=== PATIENT | female | born 1995 | race American Indian/Alaskan Native ===

== ENCOUNTER 2017-12-12 12:56 | Emergency (ER) | payer MEDICAID ==
[2017-12-12 13:03] VITALS: BP 136/67
--- NOTE | 2017-12-12 15:21 | Emergency Department Report ---
Blank Doc - Documentation Documentation: Pt has cc of nausea and some periodic low abd discomfort /cramping Pt states she believes she is 6 weeks pregnat, and pt saw some " minor spotting " this am.Pt denies cp and sob and fever and h/a. pt states " i had a minor cold last week, but its all gone" Pt states she may need Rhogam Pt has non tender, non ridgid abdomen, no cva tenderness, appears comfortable, is not actively vomiting or currently feeling nausea or pain. Pt is alert with normal gait. Pt screened, labs studies ordered, placed in rack for provider to see.
[2017-12-12 16:14] LABS: Hematocrit 37.9 % (30.3-42.9); Hemoglobin 12.6 gm/dl (10.1-14.3); Mean Corpuscular HGB Conc 33 % (30-34); Mean Corpuscular Volume 75 fl (79-97); Platelet Count 200 K/mm3 (140-440); Red Blood Count 5.09 M/mm3 (3.65-5.03)
[2017-12-12 16:21] LABS: Mean Corpuscular Hemoglobin 25 pg (28-32); Red Cell Distribution Width 24.2 % (13.2-15.2)
[2017-12-12 17:15] LABS: Basophils % (Manual) 0 % (0.0-1.8); Total Cells Counted 100
[2017-12-12 17:16] LABS: Anisocytosis 2+; Macrocytosis 1+; Ovalocytes Few; Platelet Estimate Consistent w Auto; Poikilocytosis 1+; Schistocytes Rare; Target Cells Few
[2017-12-12 17:18] LABS: Bacteria,Urine 2+ /HPF (Negative); Bilirubin,Urine NEG (Negative); Blood,Urine SM (Negative); Color,Urine Yellow (Yellow); Mucus,Urine 3+ /HPF; Protein,Urine <15 mg/dL mg/dL (Negative)
--- NOTE | 2017-12-12 18:17 | Ultrasound Report ---
FINAL REPORT EXAM: US OB TRANSVAGINAL HISTORY: bleeding and abdominal pressure. 1 TECHNIQUE: Transabdominal and transvaginal sonography of the pelvis. PRIORS: None. FINDINGS: There is a single, live intrauterine . Ultrasound estimated gestational age is 6 weeks 0 days. Ultrasound estimated date of confinement is 07 August 2018. heart motion is detected. Probable very small subchorionic hemorrhage incidentally noted. The right ovary measures 4.5 x 2.9 x 3.4 cm and contains rounded, heterogeneous hypoechoic focus measuring 2.6 cm may represent involuting follicle or cyst. The left ovary measures 3.0 x 1.9 x 2.2 cm and is grossly unremarkable. Trace free fluid in pelvic cul-de-sac. Remainder of uterus and adnexa grossly unremarkable. IMPRESSION: 1. Single, live intrauterine . 2. Probable functional cystic change in the right ovary.
--- NOTE | 2017-12-12 18:18 | Ultrasound Report ---
FINAL REPORT EXAM: US OB < = 14 WEEKS FETUS HISTORY: Blleding. abd pressure, missed period TECHNIQUE: Transabdominal and transvaginal sonography of the pelvis. PRIORS: None. FINDINGS: There is a single, live intrauterine . Ultrasound estimated gestational age is 6 weeks 0 days. Ultrasound estimated date of confinement is 07 August 2018. heart motion is detected. Probable very small subchorionic hemorrhage incidentally noted. The right ovary measures 4.5 x 2.9 x 3.4 cm and contains rounded, heterogeneous hypoechoic focus measuring 2.6 cm may represent involuting follicle or cyst. The left ovary measures 3.0 x 1.9 x 2.2 cm and is grossly unremarkable. Trace free fluid in pelvic cul-de-sac. Remainder of uterus and adnexa grossly unremarkable. IMPRESSION: 1. Single, live intrauterine . 2. Probable functional cystic change in the right ovary.
[2017-12-12] MEDS ORDERED: NACL 0.9% 1000 ML 1,000 ML IV ONE (18:19)
[2017-12-12] MEDS ORDERED: ROCEPHIN/NS 1 GM/50 ML 1 GM/50 ML BAG IV ONE (18:20)
[2017-12-12] MEDS ORDERED: cefTRIAXone 1 GM in NACL 0.9% 20 ML IV ONE (18:30)
[2017-12-12 18:38] LABS: Alanine Aminotransferase 18 units/L (7-56); Albumin 4.4 g/dL (3.9-5); BUN/Creatinine Ratio 18; Blood Urea Nitrogen 7 mg/dL (7-17); Calcium 9.2 mg/dL (8.4-10.2); Hemolysis Index 7
[2017-12-12] MEDS ORDERED: ROCEPHIN IM ONE ×3 (19:09→20:01)
[2017-12-12] MEDS ORDERED: ANCEF ONE (19:12)
--- NOTE | 2017-12-12 19:43 | Emergency Department Report ---
ED Female HPI - General Chief complaint: Vaginal Bleeding Stated complaint: VAGINAL BLEEDING/6 WEEKS Time Seen by Provider: 12/12/17 15:08 Source: patient Mode of arrival: Ambulatory Limitations: No Limitations - History of Present Illness Initial comments: Pt has cc of nausea and some periodic low abd discomfort /cramping Pt states she believes she is 6 weeks pregnat, and pt saw some " minor spotting " this am.Pt denies cp and sob and fever and h/a. pt states " i had a minor cold last week, but its all gone" Pt states she may need Rhogam Pt has non tender, non ridgid abdomen, no cva tenderness, appears comfortable, is not actively vomiting or currently feeling nausea or pain. Pt is alert with normal gait. Pt screened, labs studies ordered, placed in rack for provider to see. MD Complaint: vaginal bleeding -: This morning Quality: other (abd pressure) Consistency: intermittent Improves with: none Worsens with: none Are you Now?: Yes Last Menstrual Period: 11/01/17 EDC: 08/08/18 Associated Symptoms: nausea/vomiting - Related Data Sexually active: Yes Previous Rx's Medication Instructions Recorded Last Taken Type Lois Root [Lois] 250 mg PO Q8H PRN #30 capsule 12/12/17 Unknown Rx Pnv No.95/Ferrous Fum/Folic AC 1 each PO QDAY #90 tablet 12/12/17 Unknown Rx [ Formula Tablet] metroNIDAZOLE [Flagyl] 2 gram PO NOW #4 tablet 12/12/17 Unknown Rx Allergies Allergy/AdvReac Type Severity Reaction Status Date / Time No Known Allergies Allergy Verified 12/12/17 13:01 ED Review of Systems ROS: Stated complaint: VAGINAL BLEEDING/6 WEEKS Other details as noted in HPI Constitutional: denies: chills, fever Eyes: as per HPI ENT: denies: ear pain, throat pain Respiratory: denies: cough, shortness of breath, wheezing Cardiovascular: denies: chest pain, palpitations Gastrointestinal: abdominal pain, nausea, vomiting Genitourinary: denies: urgency, dysuria, discharge Musculoskeletal: denies: back pain, joint swelling, arthralgia Skin: denies: rash, lesions Neurological: denies: headache, weakness, paresthesias Psychiatric: denies: anxiety, depression Hematological/Lymphatic: denies: easy bleeding, easy bruising ED Past Medical Hx - Past Medical History Previous Medical History?: No - Surgical History Past Surgical History?: No - Social History Smoking Status: Former Smoker Substance Use Type: None - Medications Home Medications: Home Medications Medication Instructions Recorded Confirmed Last Taken Type Lois Root [Lois] 250 mg PO Q8H PRN #30 capsule 12/12/17 Unknown Rx Pnv No.95/Ferrous Fum/Folic AC 1 each PO QDAY #90 tablet 12/12/17 Unknown Rx [ Formula Tablet] metroNIDAZOLE [Flagyl] 2 gram PO NOW #4 tablet 12/12/17 Unknown Rx ED Physical Exam - General Limitations: No Limitations General appearance: alert, in no apparent distress - Head Head exam: Present: atraumatic, normocephalic - Eye Eye exam: Present: normal appearance - ENT ENT exam: Present: mucous membranes moist - Neck Neck exam: Present: normal inspection - Respiratory Respiratory exam: Present: normal lung sounds bilaterally - Cardiovascular Cardiovascular Exam: Present: regular rate - GI/Abdominal GI/Abdominal exam: Present: soft. Absent: distended, tenderness - External exam: Present: normal external exam Speculum exam: Present: erythema, vaginal discharge, cervical discharge, vaginal bleeding Bi-manual exam: Present: normal bi-manual exam - Extremities Exam Extremities exam: Present: normal inspection - Back Exam Back exam: Present: normal inspection - Neurological Exam Neurological exam: Present: alert, oriented X3 - Psychiatric Psychiatric exam: Present: normal affect, normal mood ED Course Vital Signs 12/12/17 13:01 Temperature 98.0 F Pulse Rate 76 Respiratory 18 Rate Blood Pressure 136/67 O2 Sat by Pulse 100 Oximetry ED Medical Decision Making - Lab Data Result diagrams: 12/12/17 15:44 12/12/17 16:59 - Radiology Data Radiology results: report reviewed, image reviewed FINDINGS: There is a single, live intrauterine . Ultrasound estimated gestational age is 6 weeks 0 days. Ultrasound estimated date of confinement is 07 August 2018. heart motion is detected. Probable very small subchorionic hemorrhage incidentally noted. The right ovary measures 4.5 x 2.9 x 3.4 cm and contains rounded, heterogeneous hypoechoic focus measuring 2.6 cm may represent involuting follicle or cyst. The left ovary measures 3.0 x 1.9 x 2.2 cm and is grossly unremarkable. Trace free fluid in pelvic cul-de-sac. Remainder of uterus and adnexa grossly unremarkable. IMPRESSION: 1. Single, live intrauterine . 2. Probable functional cystic change in the right ovary. Transcribed By: [facility] Dictated By: MARTINA ANTHONY MD Electronically Authenticated By: MARTINA ANTHONY MD Signed Date/Time: 12/12/171811 Critical care attestation.: If time is entered above; I have spent that time in minutes in the direct care of this critically ill patient, excluding procedure time. ED Disposition Clinical Impression: Trichomonas vaginitis, Bacterial vaginosis, Nausea/vomiting in , STD ( sexually transmitted disease) Qualifiers: Weeks of gestation: less than 8 weeks Qualified Code(s): Z3A.01 - Less than 8 weeks gestation of Disposition: DC-01 TO HOME OR SELFCARE Is pt being admited?: No Does the pt Need Aspirin: No Condition: Stable Instructions: Bacterial Vaginosis (ED), Morning Sickness (ED), (ED) Additional Instructions: Please take antibiotics as prescribed. Please take lois root as prescribed when necessary for nausea and vomiting. Please take vitamins as prescribed. Please follow up with an OB provider I have listed several below. Prescriptions: Lois Root [Lois] 250 mg PO Q8H PRN #30 capsule PRN Reason: N/V If Npo And No Iv Access metroNIDAZOLE [Flagyl] 2 gram PO NOW #4 tablet Pnv No.95/Ferrous Fum/Folic AC [ Formula Tablet] 1 each PO QDAY #90 tablet Referrals: PRIMARY CARE, [Primary Care Provider] - 3-5 Days [facility] [Provider Group] - 3-5 Days [facility] [Provider Group] - 3-5 Days [facility] [Provider Group] - 3-5 Days [facility] [Provider Group] - 3-5 Days Forms: STI Treatment and Prevention
[2017-12-12] MEDS ORDERED: ZITHROMAX PO ONE (19:59)
[2017-12-12] MEDS ORDERED: XYLOCAINE 1% MPF 5 mL INFILTRATI ONE (20:01)
== END 2017-12-12 21:45 | disposition home or self-care (01) ==
LOC: ED 12:56
DX: O23.591 Infection of other part of genital tract in pregnancy, first trimester (principal); A59.01 Trichomonal vulvovaginitis; A64 Unspecified sexually transmitted disease; R11.2 Nausea with vomiting, unspecified; Z3A.01 Less than 8 weeks gestation of pregnancy; Z87.891 Personal history of nicotine dependence
CPT/HCPCS: 36415; 76801; 76817; 80053; 81001; 84702; 84703; 85007; 85025; 86900; 86901; 87076; 87086; 87186; 87210; 87591; 96361; 96365; 96372; 99284; J0690; J0696; J7030

== ENCOUNTER 2018-03-07 23:31 | Emergency (ER) | payer MEDICAID, OTHER ==
[2018-03-08 01:10] LABS: Bacteria,Urine 2+ /HPF (Negative); Bilirubin,Urine NEG (Negative); Blood,Urine NEG (Negative); Calcium Oxalate Crystals,Urine 3+; Color,Urine Yellow (Yellow); Mucus,Urine 2+ /HPF
[2018-03-08 01:13] LABS: Basophils % (Auto) 0.6 % (0.0-1.8); Eosinophils # (Auto) 0.1 K/mm3 (0.0-0.4); Eosinophils % (Auto) 1.6 % (0.0-4.3); Hemoglobin 13.4 gm/dl (10.1-14.3); Lymphocytes # (Auto) 2.2 K/mm3 (1.2-5.4); Mean Corpuscular HGB Conc 35 % (30-34); Mean Corpuscular Hemoglobin 31 pg (28-32); Mean Corpuscular Volume 88 fl (79-97); Monocytes # (Auto) 0.6 K/mm3 (0.0-0.8); Platelet Count 178 K/mm3 (140-440); Red Blood Count 4.34 M/mm3 (3.65-5.03); Red Cell Distribution Width 15.4 % (13.2-15.2)
--- NOTE | 2018-03-08 01:34 | Emergency Department Report ---
ED HPI - General Chief complaint: Vaginal Bleeding Stated complaint: 18WKS PREG/BLEEDING Time Seen by Provider: 03/08/18 00:35 Source: patient Mode of arrival: Ambulatory Limitations: No Limitations - History of Present Illness Initial comments: 22-year-old female currently 18 weeks presents to the hospital complaining of brown vaginal spotting since yesterday. States spotting just minimal but she know she is O- and might need RhoGAM. This is her second she has a history of one miscarriage in the past. She has been receiving care without the [facility]. She has mild suprapubic abdominal cramping and pressure rated 5/10 in intensity. No dysuria, fever, or recent intercourse reported. - Related Data Previous Rx's Medication Instructions Recorded Last Taken Type Lois Root [Lois] 250 mg PO Q8H PRN #30 capsule 12/12/17 Unknown Rx Pnv No.95/Ferrous Fum/Folic AC 1 each PO QDAY #90 tablet 12/12/17 Unknown Rx [ Formula Tablet] metroNIDAZOLE [Flagyl] 2 gram PO NOW #4 tablet 12/12/17 Unknown Rx Nitrofurantoin Monohyd/M-Cryst 100 mg PO BID #13 capsule 03/08/18 Unknown Rx [Macrobid 100 mg Capsule] Allergies Allergy/AdvReac Type Severity Reaction Status Date / Time No Known Allergies Allergy Verified 12/12/17 13:01 ED Review of Systems ROS: Stated complaint: 18WKS PREG/BLEEDING Other details as noted in HPI Comment: All other systems reviewed and negative ED Past Medical Hx - Past Medical History Previous Medical History?: No - Surgical History Past Surgical History?: No - Social History Smoking Status: Never Smoker Substance Use Type: None - Medications Home Medications: Home Medications Medication Instructions Recorded Confirmed Last Taken Type Lois Root [Lois] 250 mg PO Q8H PRN #30 capsule 12/12/17 Unknown Rx Pnv No.95/Ferrous Fum/Folic AC 1 each PO QDAY #90 tablet 12/12/17 Unknown Rx [ Formula Tablet] metroNIDAZOLE [Flagyl] 2 gram PO NOW #4 tablet 12/12/17 Unknown Rx Nitrofurantoin Monohyd/M-Cryst 100 mg PO BID #13 capsule 03/08/18 Unknown Rx [Macrobid 100 mg Capsule] ED Physical Exam - General Limitations: No Limitations - Other Other exam information: General: No limitations, patient is alert in no acute distress Head exam: Atraumatic, normocephalic Eyes exam: Normal appearance ENT: Moist mucous membrane, normal oropharynx Neck exam: Normal inspection, full range of motion Respiratory exam: Clear to auscultation bilateral, no wheezes, rales, crackles Cardiovascular: Normal rate and rhythm, normal heart sounds Abdomen: Soft, nondistended, abdomen with uterus palpated just below umbilicus. Minimum suprapubic tenderness without rebound or guarding. Normal bowel sounds Extremity: Full range of motion normal inspection no deformity Back: Normal Inspection, full range of motion, no tenderness Neurologic: Alert, oriented x3, cranial nerves intact, no motor or sensory deficit Psychiatric: normal affect, normal mood Skin: Warm, dry, intact ED Course Vital Signs 03/07/18 03/08/18 23:29 00:52 Temperature 98.6 F Pulse Rate 73 Respiratory 18 Rate Blood Pressure 135/66 O2 Sat by Pulse 100 100 Oximetry ED Medical Decision Making - Lab Data Result diagrams: 03/08/18 00:49 Lab Results 03/08/18 03/08/18 03/08/18 Range/Units 00:47 00:49 00:49 WBC 7.2 (4.5-11.0) K/mm3 RBC 4.34 (3.65-5.03) M/mm3 Hgb 13.4 (10.1-14.3) gm/dl Hct 38.0 (30.3-42.9) % MCV 88 (79-97) fl MCH 31 (28-32) pg MCHC 35 H (30-34) % RDW 15.4 H (13.2-15.2) % Plt Count 178 (140-440) K/mm3 Lymph % (Auto) 31.0 (13.4-35.0) % [place] % (Auto) 8.0 H (0.0-7.3) % Eos % (Auto) 1.6 (0.0-4.3) % Baso % (Auto) 0.6 (0.0-1.8) % Lymph # 2.2 (1.2-5.4) K/mm3 [place] # 0.6 (0.0-0.8) K/mm3 Eos # 0.1 (0.0-0.4) K/mm3 Baso # 0.0 (0.0-0.1) K/mm3 Seg Neutrophils % 58.8 (40.0-70.0) % Seg Neutrophils # 4.2 (1.8-7.7) K/mm3 HCG, Quant 09090 H (0-4) mIU/mL Urine Color Yellow (Yellow) Urine Turbidity Clear (Clear) Urine pH 6.0 (5.0-7.0) Ur Specific [place] 1.028 (1.003-1.030) Urine Protein 30 mg/dl (Negative) mg/dL Urine Glucose (UA) Neg (Negative) mg/dL Urine Ketones Tr (Negative) mg/dL Urine Blood Neg (Negative) Urine Nitrite Neg (Negative) Urine Bilirubin Neg (Negative) Urine Urobilinogen 2.0 (<2.0) mg/dL Ur Leukocyte Esterase Lg (Negative) Urine WBC (Auto) 19.0 H (0.0-6.0) /HPF Urine RBC (Auto) 9.0 (0.0-6.0) /HPF U Epithel Cells (Auto) 23.0 H (0-13.0) /HPF Urine Bacteria (Auto) 2+ (Negative) /HPF Calcium Oxalate Crystal 3+ Urine Mucus 2+ /HPF Blood Type Antibody Screen Screen Ord Rhogam Gestat Weeks WEEKS 03/08/18 03/08/18 Range/Units 00:49 00:49 WBC (4.5-11.0) K/mm3 RBC (3.65-5.03) M/mm3 Hgb (10.1-14.3) gm/dl Hct (30.3-42.9) % MCV (79-97) fl MCH (28-32) pg MCHC (30-34) % RDW (13.2-15.2) % Plt Count (140-440) K/mm3 Lymph % (Auto) (13.4-35.0) % [place] % (Auto) (0.0-7.3) % Eos % (Auto) (0.0-4.3) % Baso % (Auto) (0.0-1.8) % Lymph # (1.2-5.4) K/mm3 [place] # (0.0-0.8) K/mm3 Eos # (0.0-0.4) K/mm3 Baso # (0.0-0.1) K/mm3 Seg Neutrophils % (40.0-70.0) % Seg Neutrophils # (1.8-7.7) K/mm3 HCG, Quant (0-4) mIU/mL Urine Color (Yellow) Urine Turbidity (Clear) Urine pH (5.0-7.0) Ur Specific [place] (1.003-1.030) Urine Protein (Negative) mg/dL Urine Glucose (UA) (Negative) mg/dL Urine Ketones (Negative) mg/dL Urine Blood (Negative) Urine Nitrite (Negative) Urine Bilirubin (Negative) Urine Urobilinogen (<2.0) mg/dL Ur Leukocyte Esterase (Negative) Urine WBC (Auto) (0.0-6.0) /HPF Urine RBC (Auto) (0.0-6.0) /HPF U Epithel Cells (Auto) (0-13.0) /HPF Urine Bacteria (Auto) (Negative) /HPF Calcium Oxalate Crystal Urine Mucus /HPF Blood Type O NEGATIVE O NEGATIVE Antibody Screen Negative Negative Screen Negative Ord Rhogam Gestat Weeks >=11 WEEKS - Radiology Data Radiology results: report reviewed US IMPRESSION: 1. Single living intrauterine gestation at approximately 18 weeks 6 days. 2. EDC by US 08/03/2028. - Medical Decision Making Ultrasound reveals normal IUP 18 weeks 6 days without any acute abnormality. Patient will receive RhoGAM prior to discharge. Urine shows increased WBC count likely contaminated due to increased Epi cells associated as well. Macrobid will be prescribed (first dose given in ed) and [facility] follow-up encouraged. - Differential Diagnosis threatened miscarriage, miscarriage Critical Care Time: No Critical care attestation.: If time is entered above; I have spent that time in minutes in the direct care of this critically ill patient, excluding procedure time. ED Disposition Clinical Impression: Threatened miscarriage, Type O blood, Rh negative, Urine WBC increased, 18 weeks gestation of Disposition: DC-01 TO HOME OR SELFCARE Is pt being admited?: No Does the pt Need Aspirin: No Condition: Stable Instructions: Rho(D) Immune Globulin (Injection), Threatened Miscarriage (ED), Urinary Tract Infection in Women (ED) Additional Instructions: Take the antibiotic as prescribed. Follow-up with your [facility] doctor. Please return if symptoms worsen as indicated by your discharge instructions. Prescriptions: Nitrofurantoin Monohyd/M-Cryst [Macrobid 100 mg Capsule] 100 mg PO BID #13 capsule Referrals: JOSEPH ESCAMILLA MD [Primary Care Provider] - 3-5 Days DIOR LOYA MD [Staff Physician] - 3-5 Days Time of Disposition: 02:56
--- NOTE | 2018-03-08 01:41 | Ultrasound Report ---
FINAL REPORT PROCEDURE: US OB > = 14 WEEKS FETUS TECHNIQUE: Real-time limited sonographic examination was performed for evaluation of position, placenta position for each fetus with image documentation (1 or more fetuses). CPT 51811 HISTORY: vaginal bleeding COMPARISON: No prior studies are available for comparison. FINDINGS: MATERNAL Uterus: Within normal limits . Cervix length: 3.7 cm. Internal Os: Closed . FETUS IUP: Single living intrauterine . Position: Cephalic. Placental position: Anterior, without previa . Amniotic fluid volume: Normal . Heart rate and rhythm: 148 BPM, Regular . anatomic survey: Not performed on this study. MEASUREMENTS BPD: 4.3 centimeter. HC: 16.3 centimeter. AC: 12.7 centimeter. FL: 3.1 centimeter. Mean Gestational Age (composite criteria): 18 weeks 6 days. Ratio biometry: Normal . Estimated Weight: 261 grams. Interval growth: Appropriate . Estimated Due Date (earliest scan): 08/03/2018. IMPRESSION: 1. Single living intrauterine gestation at approximately 18 weeks 6 days. 2. EDC by US 08/03/2028.
[2018-03-08] MEDS ORDERED: MACROBID PO ONE (01:49)
[2018-03-08 03:36] VITALS: BP 132/62
== END 2018-03-08 03:48 | disposition home or self-care (01) ==
LOC: ED 23:31
DX: O20.0 Threatened abortion (principal); Z3A.18 18 weeks gestation of pregnancy
CPT/HCPCS: 36415; 76805; 81001; 84702; 85025; 85461; 86850; 86900; 86901; 99284; J2790

== ENCOUNTER 2018-04-25 16:06 | Emergency (ER) | payer OTHER ==
[2018-04-25 17:12] VITALS: BP 108/57
--- NOTE | 2018-04-25 21:37 | Emergency Department Report ---
ED ENT HPI - General Chief complaint: Earache Stated complaint: LFT EAR BLEEDING PAIN Time Seen by Provider: 04/25/18 21:11 Source: patient, family Mode of arrival: Ambulatory Limitations: No Limitations - History of Present Illness Initial comments: This is a 22-year-old female that is 25 weeks and he reported that she is having left ear pain with some bleeding but denies any trauma. She says she has been picking in her ears because of irritated and itchy and now over the last 2 days she has been having pain with noted bleeding on Q-tip. She denies any fever or chills. Denies any nasal congestion or runny nose. Denies any neck pain or stiffness. Denies any headache. Pain to left ear is 8/10 achy worse with chewing and talking no alleviating factors. Tylenol taken for pain without any relief. Patient's that her baby's findings she does get care and baby moves all the time. Patient denies any related problems include abdominal back pain, abdominal pain, vaginal bleeding or discharge, urinary burning, frequency or urgency. MD complaint: ear pain (left ear pain with blood noted on cotton tip) Onset/Timin -: days(s) Location: L ear Severity: severe Severity scale (0 -10): 8 Quality: aching Consistency: constant Improves with: none Worsens with: eating, movement, other (Chewing and talking) Context- Ear: other (patient reports that she has been having irritation to her left ear and she has been used in objects to clean her ear out and became painful with some blood noted on cotton tip) Associated Symptoms: denies: fever, cough, gum swelling, toothache, pain with swallowing, sore throat, tinnitus, hearing loss, discharge from ear, rhinorrhea - Related Data Previous Rx's Medication Instructions Recorded Last Taken Type Lois Root [Lois] 250 mg PO Q8H PRN #30 capsule 12/12/17 Unknown Rx Pnv No.95/Ferrous Fum/Folic AC 1 each PO QDAY #90 tablet 12/12/17 Unknown Rx [ Formula Tablet] metroNIDAZOLE [Flagyl] 2 gram PO NOW #4 tablet 12/12/17 Unknown Rx Nitrofurantoin Monohyd/M-Cryst 100 mg PO BID #13 capsule 03/08/18 Unknown Rx [Macrobid 100 mg Capsule] Acetaminophen [Tylenol Extra 500 mg PO Q8H PRN #12 tablet 04/25/18 Unknown Rx Strength] Amoxicillin [Amoxicillin TAB] 875 mg PO BID 10 Days #20 tablet 04/25/18 Unknown Rx Neomy/Polymyx B/Hc (Otic) Soln 4 drops OTIC TID 7 Days #1 bottle 04/25/18 Unknown Rx [Cortisporin (Otic) Soln] Allergies Allergy/AdvReac Type Severity Reaction Status Date / Time No Known Allergies Allergy Verified 12/12/17 13:01 ED Dental HPI - General Chief complaint: Earache Stated complaint: LFT EAR BLEEDING PAIN Time Seen by Provider: 04/25/18 21:11 Source: patient Mode of arrival: Ambulatory Limitations: No Limitations - Related Data Previous Rx's Medication Instructions Recorded Last Taken Type Lois Root [Lois] 250 mg PO Q8H PRN #30 capsule 12/12/17 Unknown Rx Pnv No.95/Ferrous Fum/Folic AC 1 each PO QDAY #90 tablet 12/12/17 Unknown Rx [ Formula Tablet] metroNIDAZOLE [Flagyl] 2 gram PO NOW #4 tablet 12/12/17 Unknown Rx Nitrofurantoin Monohyd/M-Cryst 100 mg PO BID #13 capsule 03/08/18 Unknown Rx [Macrobid 100 mg Capsule] Acetaminophen [Tylenol Extra 500 mg PO Q8H PRN #12 tablet 04/25/18 Unknown Rx Strength] Amoxicillin [Amoxicillin TAB] 875 mg PO BID 10 Days #20 tablet 04/25/18 Unknown Rx Neomy/Polymyx B/Hc (Otic) Soln 4 drops OTIC TID 7 Days #1 bottle 04/25/18 Unknown Rx [Cortisporin (Otic) Soln] Allergies Allergy/AdvReac Type Severity Reaction Status Date / Time No Known Allergies Allergy Verified 12/12/17 13:01 ED Review of Systems ROS: Stated complaint: LFT EAR BLEEDING PAIN Other details as noted in HPI Constitutional: denies: chills, fever Eyes: denies: eye pain, eye discharge, vision change ENT: ear pain. denies: throat pain, hearing loss, epistaxis, congestion Respiratory: denies: cough, shortness of breath, wheezing Cardiovascular: denies: chest pain, palpitations, edema, syncope Gastrointestinal: denies: nausea, vomiting, diarrhea Genitourinary: denies: hematuria, discharge Musculoskeletal: denies: back pain, joint swelling, arthralgia Skin: denies: rash, lesions, other Neurological: denies: headache, weakness ED Past Medical Hx - Past Medical History Previous Medical History?: No - Surgical History Past Surgical History?: No - Family History Family history: hypertension - Social History Smoking Status: Never Smoker Substance Use Type: None - Medications Home Medications: Home Medications Medication Instructions Recorded Confirmed Last Taken Type Lois Root [Lois] 250 mg PO Q8H PRN #30 capsule 12/12/17 Unknown Rx Pnv No.95/Ferrous Fum/Folic AC 1 each PO QDAY #90 tablet 12/12/17 Unknown Rx [ Formula Tablet] metroNIDAZOLE [Flagyl] 2 gram PO NOW #4 tablet 12/12/17 Unknown Rx Nitrofurantoin Monohyd/M-Cryst 100 mg PO BID #13 capsule 03/08/18 Unknown Rx [Macrobid 100 mg Capsule] Acetaminophen [Tylenol Extra 500 mg PO Q8H PRN #12 tablet 04/25/18 Unknown Rx Strength] Amoxicillin [Amoxicillin TAB] 875 mg PO BID 10 Days #20 tablet 04/25/18 Unknown Rx Neomy/Polymyx B/Hc (Otic) Soln 4 drops OTIC TID 7 Days #1 bottle 04/25/18 Unknown Rx [Cortisporin (Otic) Soln] ED Physical Exam - General Limitations: No Limitations General appearance: alert, in no apparent distress - Head Head exam: Present: atraumatic, normocephalic, normal inspection - Eye Eye exam: Present: normal appearance, PERRL, EOMI Pupils: Present: normal accommodation - ENT ENT exam: Present: normal orophraynx, mucous membranes moist, normal external ear exam (left EAC with swelling and redness and tenderness. Left tragus tender to palpate), other (bilateral maxillary and frontal sinus is nontender to palpate. Bilateral nasal mucosa). Absent: normal exam, TM's normal bilaterally (left TM erythema.) - Expanded ENT Exam Expanded TM/Canal exam: Erythema: Left TM, Loss of Landmarks: Left TM, Canal Tenderness: Left TM (with redness and swelling.) Mouth exam: Present: normal external inspection, tongue normal Teeth exam: Present: normal inspection Throat exam: Positive: normal inspection - Neck Neck exam: Present: normal inspection, full ROM. Absent: tenderness, lymphadenopathy - Respiratory Respiratory exam: Present: normal lung sounds bilaterally. Absent: respiratory distress, chest wall tenderness - Cardiovascular Cardiovascular Exam: Present: regular rate, normal rhythm, normal heart sounds. Absent: systolic murmur, diastolic murmur - GI/Abdominal GI/Abdominal exam: Present: soft, normal bowel sounds, other (Que in from 25 weeks ). Absent: tenderness - Extremities Exam Extremities exam: Present: normal inspection, full ROM, normal capillary refill , other (No cce. + 2 pulses in all extremities, no neurovascular compromise). Absent: tenderness, pedal edema, joint swelling, calf tenderness - Neurological Exam Neurological exam: Present: alert, oriented X3, normal gait - Psychiatric Psychiatric exam: Present: normal affect, normal mood - Skin Skin exam: Present: warm, dry, intact, normal color. Absent: rash ED Course Vital Signs 04/25/18 17:09 Temperature 98.5 F Pulse Rate 67 Respiratory 16 Rate Blood Pressure 108/57 O2 Sat by Pulse 98 Oximetry - Reevaluation(s) Reevaluation #1: 04/25/18 21:45 Patient received Tylenol plain and then on Heather 75 mg by mouth in the emergency room for left ear pain and amoxicillin 500 mg by mouth to start treatment for otitis media. ED Medical Decision Making - Medical Decision Making This is a 22-year-old female here for left ear pain with blood noted on cotton tip while she was cleaning her ear. She is 25 weeks and followed by OB /RETAIL CONSULTANT for care with no problems in per patient Assessment/plan Otitis media, left ear-patient started on amoxicillin 500 mg by mouth in the emergency room and will be discharged home on amoxicillin Otitis externa, left ear-she will be given Corticosporin otic solution for a left EAC infection Otalgia left ear-Tylenol 650 mg given for left ear pain and will be discharged home on Tylenol. I discussed with patient my physical findings and diagnosis of her left ear to be infection of her eardrum and an ear canal. I discussed with her treatment plan and that she needs to follow-up with her primary care physician or her OB/ RETAIL CONSULTANT in 3-5 days that she was understanding. Patient is not having any problem with her earring and having no active bleeding from ears. Patient is stable, pain control and she is discharged home with prescription for amoxicillin, Corticosporin on headache and Tylenol plain. Critical care attestation.: If time is entered above; I have spent that time in minutes in the direct care of this critically ill patient, excluding procedure time. ED Disposition Clinical Impression: Otalgia, left ear Otitis media Qualifiers: Otitis media type: unspecified Laterality: left Qualified Code(s): H66.92 - Otitis media, unspecified, left ear Otitis externa of left ear Qualifiers: Otitis externa type: unspecified type Chronicity: acute Qualified Code(s): H60.502 - Unspecified acute noninfective otitis externa, left ear Disposition: - TO HOME OR SELFCARE Is pt being admited?: No Does the pt Need Aspirin: No Condition: Stable Instructions: Otitis Media (ED), Otitis Externa (ED), Earache (ED) Additional Instructions: Please take antibiotic as prescribed Follow-up with primary care physician or your D[facility]LLING [facility]EMAN in 3-5 days Take Tylenol plain as prescribed for pain but Please refrain from putting any objects and your ear A few air pain increases, increased pressure, fever or chills, increase in bleeding and loss of hair and please return to the emergency room [facility] Referrals: you are, [facility] [employer] [Other] - 2-3 Days you are, primary care doctor [Other] - 2-3 Days YOLANDA BOLAND MD [Staff Physician] - 2-3 Days Forms: Work/School Release Form(ED)
[2018-04-25] MEDS ORDERED: TRIMOX PO ONE (21:42)
[2018-04-25] MEDS ORDERED: TYLENOL PO ONE (21:42)
== END 2018-04-25 22:00 | disposition home or self-care (01) ==
LOC: ED 16:06
DX: O26.892 Other specified pregnancy related conditions, second trimester (principal); H66.92 Otitis media, unspecified, left ear; H60.502 Unspecified acute noninfective otitis externa, left ear
CPT/HCPCS: 99282

== ENCOUNTER 2018-05-24 16:31 | Outpatient (CLI) | payer OTHER | END 2018-05-24 16:32 | disposition home or self-care (01) | LOC: TRG 16:31 | PROVIDERS: ATTEND Obstetrics & Gynecology | DX: O36.0130 Maternal care for anti-D [Rh] antibodies, third trimester, not applicable or unspecified (principal); Z3A.29 29 weeks gestation of pregnancy | CPT/HCPCS: 86850; 86900; 86901; J2790 ==